=== PATIENT | male | born 1990 | race Caucasian/White ===

== ENCOUNTER 2022-05-30 10:17 | Emergency (ER) | payer OTHER, SELFPAY ==
--- NOTE | 2022-05-30 10:19 | ED.GENADULT ---
HPI - General Adult General Chief complaint: Upper Respiratory Infection Stated complaint: Body Aches,Cough,Stuffy Nose Time Seen by Provider: 05/30/22 10:19 Source: patient Mode of arrival: ambulatory Limitations: no limitations History of Present Illness HPI narrative: 31-year-old male patient presents to the [facility] with complaints of cold symptoms that started yesterday. Patient states he has had a slight cough, body aches, chills unknown if he has had a fever. Patient states that his was diagnosed with strep throat last week but denies any sore throat at this time. Patient states that he has not been vaccinated against influenza or COVID. Patient states he has taken some Tylenol [id number] for his fever which did bring it down. Denies any chest pain, shortness of breath, abdominal pain, nausea, vomiting or diarrhea. Related Data Home Medications Medication Instructions Recorded Confirmed No Home Medications 05/30/22 05/30/22 Allergies Allergy/AdvReac Type Severity Reaction Status Date / Time No Known Allergies Allergy Verified 05/30/22 10:25 Review of Systems Review of Systems: CONSTITUTIONAL: Denies fever, Positivechills, or sweats. EYES: Denies visual changes, redness, or discharge. ENT: positive rhinorrhea, congestion, deniessore throat, or otalgia. CARDIOVASCULAR: Denies chest pain, palpitations, or edema. RESPIRATORY: positive mild cough , denies dyspnea. GASTROINTESTINAL: Denies abdominal pain, nausea, vomiting, or diarrhea. GENITOURINARY: Denies dysuria or hematuria. SKIN: Denies rash or itching. MUSCULOSKELETAL: Denies back pain, joint pain, or myalgia. NEUROLOGIC: positive headache, denies numbness, or weakness. PSYCHIATRIC: Denies anxiety or depression. PMFSH Past Medical History Medical History (Updated 05/30/22 @ 10:45 by RUBY Paige) Pyloric stenosis Family History Family History (Updated 05/30/22 @ 10:20 by RUBY Paige) Other Hypertension Comments At the time of my signature I agree with nursing past medical history, surgical, social, and family history. There is no relevant family history pertinent to the presenting complaint. Exam Narrative: GENERAL: Well-appearing, well-nourished, and in no acute distress. HEAD: Normocephalic, atraumatic. EYES: PERRLA and EOMI. ENT: Nares with erythema edema noted bilateral, no rhinorrhea or epistaxis. Mucous membranes moist. posterior pharynx with no erythema, tonsillar enlargement, exudates or lesions present. Bilateral TMs are clear no erythema foreign bodies the canal. NECK: Supple. No lymphadenopathy CHEST: Clear to auscultation. No respiratory distress. HEART: Regular rate and rhythm. No murmur heard. Normal peripheral pulses. ABDOMEN: Soft, nontender, nondistended, normal active bowel sounds. EXTREMITIES: Normal range of motion. No edema. SKIN: Warm, dry, no rash. NEURO: No focal deficits. Alert and oriented x3. Course Course Level of Care: Express Care Visit Vital Signs Vital signs: Vital Signs Temperature 36.7 C 05/30/22 10:31 Pulse Rate 86 05/30/22 10:31 Respiratory Rate 18 05/30/22 10:31 Blood Pressure 136/81 05/30/22 10:31 Pulse Oximetry 100 05/30/22 10:31 Oxygen Delivery Room Air 05/30/22 10:31 Temperature 36.7 C 05/30/22 10:31 Pulse Rate 86 05/30/22 10:31 Respiratory Rate 18 05/30/22 10:31 Blood Pressure 136/81 05/30/22 10:31 Pulse Oximetry 100 05/30/22 10:31 Oxygen Delivery Room Air 05/30/22 10:31 Vital signs reviewed. The patient has been informed that they may have pre-hypertension or Hypertension based on a BP reading in the department. I recommend that the patient call the primary care provider listed on their discharge instructions or a physician of their choice this week to arrange follow up for further evaluation of possible pre-hypertension or Hypertension Medical Decision Making [facility] Narrative Medical decision alina
[2022-05-30 10:31] VITALS: BP 136/81; PULSE 86; RESP 18; TEMP 36.7; O2SAT 100
== END 2022-05-30 11:00 | disposition home or self-care (01) ==
PROVIDERS: Emergency Provider Nurse Practitioner Family
DX: J06.9 Acute upper respiratory infection, unspecified (principal)
CPT/HCPCS: 87804; 99203; G0463